=== PATIENT | female | born 1955 | race Caucasian/White ===

== ENCOUNTER → 2016-12-27 | Day surgery (SDC) | payer OTHER ==
[~2016-12-27] MED LIST: BUPIVACAINE HCL PF 0.75% 30 ML VIAL ONE; EPINEPHrine HCL (1:1000) 30 MG/30 ML VIAL ONE; KETOROLAC TROMETHAMINE 30 MG/ML (IVP) VIAL ONE; LACTATED RINGER'S 1000 ML INJ 1,000 ML ONE; LIDOCAINE 1.5%/EPINEPHrine 1:200,000 PF SOLN 30 ML AMP ONE; MEPERIDINE HCL 25 MG/ML VIAL ONE; MIDAZOLAM HCL 5 MG/ML VIAL (1 ML) ONE; MORPHINE SULFATE 4 MG/ML INJ ONE; ONDANSETRON HCL 4 MG/2 ML VIAL IV PUSH ONE; PROPOFOL 500 MG/50 ML BTL IV ONE; ceFAZolin 2 GM PREMIX 50 ML ONE; diphenhydrAMINE HCL 50 MG/ML VIAL ONE; oxyCODONE/ACETAMINOPHEN 5 MG/325 MG TAB ONE
--- NOTE | 2016-12-30 10:32 | MP ---
cc: OMARI LINARES M.D. DATE OF SURGERY: 12/27/2016 PREOPERATIVE DIAGNOSIS: Right shoulder rotator cuff tear and impingement syndrome. POSTOPERATIVE DIAGNOSIS: 1. Right shoulder full thickness rotator cuff tear. 2. Right shoulder superior and posterior labral tear. 3. Right shoulder impingement syndrome. OPERATION: 1. Right shoulder arthroscopic rotator cuff repair. 2. Right shoulder arthroscopic debridement, superior and posterior labrum and articular surface. 3. Right shoulder arthroscopic subacromial decompression. ANESTHESIA: Interscalene block and general. SURGEON Omari Linares MD PRESS SUPERVISOR SURGEON ANDRIY Wesley ESTIMATED BLOOD LOSS: Minimal SPECIMEN None COMPLICATIONS None known. INDICATION Roxanne Osorio is a 61 year-old female with chronic pain and dysfunction of her right shoulder, who has had an MRI scan over a year ago which showed full thickness rotator cuff tear. She now presents for arthroscopic surgery. The risks and benefits of surgical intervention were thoroughly discussed and detailed informed consent was obtained. The patent legal assistant, Anthony Cohn is an advanced registered nurse practitioner. His skill set was medically necessary for the performance of the operation. DESCRIPTION OF PROCEDURE: The patient was given interscalene block in the preop holding area. She was brought to the operating room, placed under general anesthetic, turned to the lateral decubitus position, right shoulder up. The right shoulder was prepped and draped in the usual sterile fashion. IV antibiotics were given. Time out was completed. Bony landmarks were drawn and we used a three portal technique, one in the posterior soft spot, one in the junction of the middle and lateral third of the acromion, and eventually accessory portal was used anteriorly. Blunt trocar was used to introduce the cannula and the first photograph demonstrates the articular surface with some minimal fraying. The glenoid humeral head looked very good. The second photograph shows tears involving the superior labrum and the posterior labrum. Looking upward we saw a full thickness rotator cuff tear. We placed disposable cannula through the lateral portal and it came directly and proceeded with debriding the superior labrum down to stable tissue and likewise the posterior labrum and then repeat probing showed this to be stable. There is some mild fraying at the base of the biceps tendon. The majority of the biceps tendon intact. We did a follow up photograph here. There was some fraying centrally within the glenoid and the small delaminated cartilage was debrided as well. We then looked upwards at the full thickness rotator cuff tear and began debriding from the undersurface where we had direct visualization, and after we completed this and performed debridement of the bone, so we had bleeding bone, then we went into the subacromial space, identified the anterior acromial spur, identified the unstable rotator cuff fibers from above, and debrided this vascular tissue. We confirmed that we had good bleeding bone. Then we assessed our repair and it looked like based on the chronicity of the tear, that some of the fibers stretched out quite a bit, so that there would be significant dog ears unless we proceeded with additional technique, so we did proceed to split the superficial layer in the rotator interval so that we could advance the supraspinatus all the way to the lateral edge, and we also did some splitting of the superficial layer posteriorly, and then we reassessed, and then we proceeded with placement of our bio-composite 4.75 suture anchors at the articular margin, posterior to the biceps tendon and then used the free suture to do a [id number] stitch in the rotator interval which had been released and that pulled the tissue into very nice configuration, and then we passed our fiber tape and then proceeded with placement of the posterior anchor, about a centimeter and a half posterior top this, and then we proceeded with placing her fiber tape but then did the [id number] suturing, and then we did the typical crisscross Speedbridge technique and also additionally used a free simple suture to manage the dog ear anteriorly, and this came together with the tissue down to the bone, with nice compression and nice configuration. It should be noted that we previously identified the subacromial spur and we did proceed with subacromial decompression, and shaved the bone removing approximately 3 millimeters of bone, most anterior aspect. We had a smooth undersurface and lateral acromion and follow up photograph shows both the repair and acromion decompression at the same time. We had very good hemostasis, good movement of the arm post surgery. We proceeded to remove the arthroscopic equipment, close the absorbable sutures. Steri-Strips applied. Sterile dressing applied. The patient was awoken and returned to the Recovery Room in stable condition. MD RACHEL Bass/DESIRE /9:30 AM /10:06 AM
== END | disposition home or self-care (01) ==
LOC: ESDC 06:17
PROVIDERS: ATTEND Orthopaedic Surgery Sports Medicine
DX: M75.121 Complete rotator cuff tear or rupture of right shoulder, not specified as traumatic (principal); S43.431A Superior glenoid labrum lesion of right shoulder, initial encounter; M75.41 Impingement syndrome of right shoulder
CPT/HCPCS: 01630; 01991; 29823; 29826; 29827; 64417; C1713; J0171; J0690; J1200; J1885; J2175; J2250; J2270; J2405; J7120